=== PATIENT | female | born 1970 | race Caucasian/White ===

== ENCOUNTER → 2022-04-10 11:14 | Outpatient (BNVA) | payer OTHER, SELFPAY | PROVIDERS: Family Provider Internal Medicine; Visit Provider Nurse Practitioner Family | DX: E88.81 Metabolic syndrome and other insulin resistance (principal); E66.9 Obesity, unspecified; R11.0 Nausea; R68.89 Other general symptoms and signs | CPT/HCPCS: 80053; 80061; 84443 ==